=== PATIENT | female | born 1965 | race African-American/Black ===

== ENCOUNTER 2018-01-30 15:34 | Inpatient (IN) | payer SELFPAY ==
[~2018-01-30] VITALS: Ht 154.9 cm; Wt 106.5 kg
--- NOTE | ~2018-01-30 | EKG ---
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 : 1965 Requested By: Mary Segura Order Number: [id number] MD: Chris Oro Measurements Intervals [place] Rate: 74 P: 60 [place]: 165 QRS: 5 QRSD: 101 T: 98 QT: 394 QTc: 438 Interpretive Statements Sinus rhythm Abnormal R-wave progression, early transition LVH with secondary repolarization abnormality Inferior infarct, acute (RCA) Lateral leads are also involved Probable RV involvement, suggest recording right precordial leads Compared to ECG 12/30/2009 14:48:16 No significant changes Electronically Signed On 01-31-2018 13:21:54 JOURNALISM INTERN by Chris Oro [email or web address] <ELECTRONICALLY SIGNED> By: Chris Oro MD 01/31/18 1321 1538 1538 Chris Oro MD /EPI
--- NOTE | ~2018-01-30 | EKG ---
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 : 1965 Requested By: Martín Garcia Order Number: [id number] MD: Chris Oro Measurements Intervals [place] Rate: 76 P: 20 [place]: 187 QRS: -9 QRSD: 96 T: -9 QT: 429 QTc: 483 Interpretive Statements Sinus rhythm Abnormal R-wave progression, early transition Probable left ventricular hypertrophy Inferior infarct, old Baseline wander in lead(s) V3 Compared to ECG 12/30/2009 14:48:16 Early repolarization no longer present Myocardial infarct finding still present Electronically Signed On 01-31-2018 13:23:18 GROUNDWATER PROGRAMS DIRECTOR by Chris Oro [email or web address] <ELECTRONICALLY SIGNED> By: Chris Oro MD 01/31/18 1323 11 11 Chris Oro MD /EPI
--- NOTE | ~2018-01-30 | EKG ---
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 : 1965 Requested By: Chris Oro Order Number: [id number] MD: Chris Oro Measurements Intervals [place] Rate: 85 P: 27 [place]: 161 QRS: -29 QRSD: 89 T: -36 QT: 377 QTc: 449 Interpretive Statements Sinus rhythm Abnormal R-wave progression, early transition Left ventricular hypertrophy Inferior infarct, old Compared to ECG 01/31/2018 07:37:33 No significant changes Electronically Signed On 02-01-2018 10:30:49 INSTRUMENT ASSEMBLER by Chris Oro [email or web address] <ELECTRONICALLY SIGNED> By: Chris Oro MD 02/01/18 1030 1018 1018 Chris Oro MD /EPI
--- NOTE | ~2018-01-30 | CATHLAB ---
[facility] [address] [place] [address] INVASIVE PROCEDURE REPORT Name: LINO BHANDARI Room #: 216-P ADM IN M.R.#: [id number] Admission: 01/30/18 Attend Phys: Rodrigo Boyd, Discharge: Date of : 65 Date of Service: 01/30/18 1836 Report #: [id number] THIS REPORT FOR: //name// APPROVED REPORT Patient Details Patient Status: In-Patient Room #: The patient is a 52 year-old female Event Personnel Jennifer Barton, Ne Barry, Sharan, Patria TSANG RN, Tre Murphy RN RN, Martín Garcia Talent Acquisition Consultant Procedures Performed Art Access - R femoral artery* 27791 Initial Mod Sed Same Phys/QHP Gr5y 500307 56607 Mod Sed Same Phys/QHP Ea 819582 Left Heart Cath w/or w/o Coronaries [id number] [facility] DIOGO Revasc AMI Total/Sub Single CIRC C9606 AMIREVSING Hemostasis w/ Mynx Indication STEMI (>0 to less than or equal to 6 hours) Risk Factors Dysplipidemia Obesity, Family History, Hypertension, Diabetes Admission/Lab Medications/Medications given during procedure Aspirin, Glycoprotein IllbIlla Inhibitors, Lipid Lowering Agents, ACEI/ARB, Platelet Aff. Inhib., Beta BlockerHeparin Unfract. Procedure Narrative The patient was brought emergently to the Cardiac Catheterization Laboratory and was prepped and draped in a sterile manner. The Right Groin^ was infiltrated with 1% Lidocaine subcutaneous anesthesia. A PINNACLE 6FR Sheath #[id number] sheath was inserted into the RFA^. Coronary angiography was performed using coronary diagnostic catheters. The right coronary system was accessed and visualized with a JR 4 catheter. The left coronary system was accessed and visualized with a VISTA 6FR XB 3.5 #[id number] catheter. The left ventricle was accessed and visualized with a Pigtail catheter. Left ventricular/Aortic Valve gradient assessed via catheter pullback. Left ventriculogram was performed in CAMPBELL projection. Closure device was deployed with a 6 Fr Mynx. The patient tolerated the procedure well and there were no complications associated with the procedure. [facility] [address] [place] [address] INVASIVE PROCEDURE REPORT Name: LINO BHANDARI Room #: 216-P [facility] IN .R.#: [id number] Admission: 01/30/18 Attend Phys: Rodrigo Boyd, Discharge: Date of : 65 Date of Service: 01/30/18 1836 Report #: [id number] There was no hematoma. Intraoperative Conscious Sedation Sedation start time: 16:37 Case end Time: 17:41 Fentanyl 25 mcg Versed 2 mg Fluoro Time: 8.59 minutes Dose: DAP 92519.10 cGycm2 1842 mGy Contrast Type and Amount: Omnipaque 200 ml Coronary Angiography The patient's coronary anatomy is co- dominant. Diagnostic Cath Left Main Normal LAD Normal Diagonal 1 Large proximal diagonal branch, angiographically normal Circumflex Co-dominant with mid vessel occlusion OM1 Small OM1, prior to occlusion of mid-Cx. Angiographically normal Right Coronary Normal R PDA Normal Left Ventriculography The left ventricle is normal in size with normal contractility. The left ventricular ejection fraction is estimated to be 55-60%. Left ventricular wall motion abnormalities are present. There is no mitral insufficiency. Normal global systolic function withn mild inferior wall hypokinesis Hemodynamics The aortic pressure is 118/74 mmHg with a mean of 92 mmHg. The left ventricular pressure is 163/6 mmHg with a mean of mmHg. The left ventricular end diastolic pressure is 39 mmHg. PCI Technique Lesion Anticoagulation was achieved with Heparin, Integrilin. Patient was preloaded with Brillinta. Percutaneous coronary intervention was performed on the mid circumflex artery segment. The lesion stenosis prior to intervention was 100% with PAGE 0 flow. A VISTA 6FR XB 3.5 #[id number] Guide Catheter was used to engage the ostium. A Luge Wire .014 x 182CM #[id number] Interventional Guidewire was used to cross the lesion. [facility] [address] [place] [address] INVASIVE PROCEDURE REPORT Name: LINO BHANDARI Room #: 216-P [facility] IN M.R.#: [id number] Admission: 01/30/18 Attend Phys: Rodrigo Boyd, Discharge: Date of : 65 Date of Service: 01/30/18 1836 Report #: [id number] BALLOON DILATION A Balloon catheter Euphora NC RX 2.5 x 12 #[id number] was inserted and inflated up to 10atm for 30seconds. Repeat angiography revealed the following post-dilatation results: Moderate residual stenosis. PAGE III flow restored. Additional Inflation: 10atm for 30seconds. STENT DEPLOYMENT A drug-eluting stent RESOLUTE RX 3.0 X 18 #[id number] was inserted and inflated up to 14.00atm for 30seconds. Repeat angiography revealed the following post-stent deployment results: 0% residual stenosis. POST STENT DEPLOYMENT BALLOON DILATION A Balloon catheter Euphora NC RX 3.0 x 15 #[id number] was inserted and inflated up to 25.00atm for 30seconds. Repeat angiography revealed the following post-dilatation results: 0% residual stenosis with PAGE III flow. Final angiography reveals 0 % stenosis with PAGE 3 flow. Conclusion 1. Normal global systolic function with mild inferior wall hypokinesis EF 55% 2. Normal left main 3. Normal LAD, RCA 4. Occluded co-dominant mid-Cx successfully stented with 3.0 x 18 Resolute medicated stent, post dilated to 3.3mm Recommendations Cardiac Rehabilitation Referral Aggressive Medical Therapy Weight Loss Reduction Program Medications Administered HARIKA Inhibitor (any) Aspirin (any) Beta Irvin (any) Statin (any) Ticagrelor Cardiac Rehabilitation Referral <ELECTRONICALLY SIGNED> By: Martín Garcia MD, [facility] 01/30/181835 35 35 Martín Garcia MD, FAC /INF
--- NOTE | ~2018-01-30 | HC ---
[facility] [place] [address] CONSULTATION Name: LINO BHANDARI Room #: 216-P [facility] IN M.R.#: [id number] Admission: 01/30/18 Attend Phys: Rodrigo Boyd DO Discharge: 02/02/18 Date of : 65 Report #: [id number] THIS REPORT FOR: //name// CC: BENJAMIN physician/PCP Rodrigo Boyd DATE OF SERVICE: 01/30/2018 REASON FOR CONSULTATION: Chest pain. HISTORY OF PRESENT ILLNESS: The patient is a 52-year-old woman with hypertension, dyslipidemia, and diabetes. Around 2:30 today, she experienced a midsternal chest tightness that she thought was indigestion. This was not associated with other symptoms. She presented to the Emergency Department with ongoing pain where an EKG demonstrated inferolateral injury pattern. I was asked to see her in this regard. She denies a past cardiac history. No heart failure symptoms including orthopnea, paroxysmal nocturnal dyspnea or lower extremity edema. She denies palpitations, near syncope, or syncope. ALLERGIES: There are no known drug allergies. MEDICATIONS: Include amlodipine 10 mg daily, triamterene/hydrochlorothiazide 1 a day, pravastatin, and Prevacid. PAST MEDICAL HISTORY: Medical records have been reviewed and include a history of prediabetes, hypertension, and dyslipidemia. SOCIAL HISTORY: She is single, has one child. Nonsmoker, nondrinker. FAMILY HISTORY: Notable for father who had premature coronary disease. REVIEW OF SYSTEMS: All systems negative except as that noted above. PHYSICAL EXAMINATION: GENERAL: Reveals a pleasant woman, in ongoing moderate distress. VITAL SIGNS: Blood pressure is 140/70, heart rate of 78 and regular. She is afebrile. HEENT: There are neither xanthelasma, subcutaneous xanthomata, oral mucosal or digital cyanosis or kyphoscoliosis present. CHEST: Clear to auscultation and percussion. CARDIOVASCULAR: Regular rate and rhythm with normal S1 and S2. No murmurs or rubs. ABDOMEN: Soft, obese and nontender. EXTREMITIES: Without cyanosis, clubbing or edema. Radial pulses are 2+. NEUROLOGIC: She is alert with a nonfocal exam. [facility] [address] [place] [address] CONSULTATION Name: LINO BHANDARI Room #: 216-P [facility] IN .R.#: [id number] Admission: 01/30/18 Attend Phys: Rodrigo Boyd DO Discharge: 02/02/18 Date of : 65 Report #: [id number] LABORATORY DATA: Sodium is 137, potassium 2.7, creatinine 1.1, glucose 160. White count is 16.4, hemoglobin 12, hematocrit 38, platelet count 342. EKG, sinus rhythm with inferolateral injury. IMPRESSION: 1. Acute inferolateral myocardial infarction. 2. Hypertension. 3. Diabetes. 4. Dyslipidemia. 5. Family history of premature coronary artery disease. RECOMMENDATIONS: 1. Urgent coronary angiography. 2. Anticoagulant and antiplatelet therapy. 3. Continued efforts towards aggressive risk factor modification. I have discussed the angiographic procedure in detail including its associated risks. After a thorough discussion of the procedure, its risks and alternatives, and after answering her questions, she is agreeable to proceeding. <ELECTRONICALLY SIGNED> By: Martín Garcia MD, [facility] 02/03/18 0738 1618 1937 Martín Garcia MD, FACC /nt
--- NOTE | ~2018-01-30 | EKG ---
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 : 1965 Requested By: Martín Garcia Order Number: [id number] MD: Chris Oro Measurements Intervals [place] Rate: 89 P: 27 DC: 159 QRS: -19 QRSD: 89 T: 57 QT: 388 QTc: 473 Interpretive Statements Sinus rhythm Abnormal R-wave progression, early transition Left ventricular hypertrophy Inferior infarct, old Compared to ECG 12/30/2009 14:48:16 Early repolarization no longer present Myocardial infarct finding still present Electronically Signed On 01-31-2018 13:29:21 REAL ESTATE LEGAL ASSISTANT by Chris Oro [email or web address] <ELECTRONICALLY SIGNED> By: Chris Oro MD 01/31/18 1329 0737 0737 Chris Oro MD /EPI
--- NOTE | ~2018-01-30 | 2DMMODE ---
[facility] [address] [place] [address] 2 D/M-MODE ECHOCARDIOGRAM Name: LINO BHANDARI Room #: 216-P ADM IN M.R.#: [id number] Admission: 01/30/18 Attend Phys: Rodrigo Boyd, Discharge: Date of : 65 Date of Service: 02/02/18 1105 Report #: [id number] THIS REPORT FOR: //name// APPROVED REPORT Study performed: 02/02/2018 08:52:46 EXAM: Comprehensive 2D, Doppler, and color-flow Echocardiogram Patient Location: Bedside Room #: 216 Status: routine BSA: 2.02 HR: 76 bpm BP: 147/74 mmHg Other Information Study Quality: Adequate Technically limited study due to body habitus. Indications Chest Pain Hypertension/HDD CT 2D Dimensions LVEF(%): 51.00 (>50%) IVSd: 15.86 (7-11mm) LVOT Diam: 18.63 (18-24mm) LVDd: 32.62 mm PWd: 15.87 (7-11mm) Ascending Ao: 26.19 (22-36mm) LVDs: 24.41 (25-40mm) Aortic Root: 29.54 mm IVC: 15.00 mm Bishop's LVEF: 51.00 % Volumes Left Atrial Volume (Systole) Single Plane 4CH: 33.58 mL Single Plane 2CH: 18.71 mL LA ESV Index: 14.00 mL/m2 Aortic Valve AoV Peak Catracho.: 1.37 m/s AO Peak Gr.: 10.11 mmHg LVOT Max P.53 mmHg LVOT Max V: 1.06 m/s KRISTINA Vmax: 2.11 cm2 Mitral Valve [facility] [address] [place] [address] 2 D/M-MODE ECHOCARDIOGRAM Name: LINO BHANDARI HILLARY Room #: 216-P [facility] IN M.R.#: [id number] Admission: 01/30/18 Attend Phys: Rodrigo Boyd, Discharge: Date of : 65 Date of Service: 02/02/18 1105 Report #: [id number] E/A Ratio: 0.8 MV Decel. Time: 203.18 ms MV E Max Catracho.: 0.86 m/s MV A Catracho.: 1.02 m/s MV PHT: 58.92 ms IVRT: 89.97 ms Pulmonary Valve PV Peak Catracho.: 0.98 m/s PV Peak Gr.: 3.84 mmHg Pulmonary Vein P Vein S: 0.50 m/s P Vein A: 0.28 m/s P Vein D: 0.31 m/s P Vein A Dur.: 73.8 msec P Vein S/D Ratio: 1.61 Tricuspid Valve RAP Estimate: 5.00 mmHg Left Ventricle The left ventricle is normal size. Moderate concentric left ventricular hypertrophy. The left ventricular systolic function is normal. The left ventricular ejection fraction is within the normal range. LVEF is 55-60%. Mild diastolic dysfunction is present (impaired relaxation pattern). Right Ventricle Right ventricle is not well visualized. The right ventricular systolic function is normal. Atria The left atrium size is normal. The right atrium size is normal. Aortic Valve Aortic valve is mildly calcified, trileaflet. Trace aortic regurgitation. There is no aortic valvular stenosis. Mitral Valve The mitral valve is normal in structure. There is no mitral valve regurgitation noted. No evidence of mitral valve stenosis. Tricuspid Valve The tricuspid valve is normal in structure. There is no tricuspid valve regurgitation noted. Unable to assess PA pressure. Pulmonic Valve [address] [address] 2 D/M-MODE ECHOCARDIOGRAM Name: LINO BHANDARI Room #: 216-P [facility] IN M.R.#: [id number] Admission: 01/30/18 Attend Phys: Rodrigo Boyd, Discharge: Date of : 65 Date of Service: 02/02/18 1105 Report #: [id number] The pulmonary valve is normal in structure. There is no pulmonic valvular regurgitation. Great Vessels The aortic root is normal in size. IVC is normal in size and collapses >50% with inspiration. Pericardium There is no pericardial effusion. <Conclusion> The left ventricular systolic function is normal. Minimal inferobasal hypokinesis Moderate concentric left ventricular hypertrophy. Mild diastolic dysfunction is present (impaired relaxation pattern). Aortic valve is mildly calcified, trileaflet. Trace aortic regurgitation, no stenosis. The mitral valve is normal in structure. No mitral valve regurgitation noted. There is no pericardial effusion. <ELECTRONICALLY SIGNED> By: Martín Garcia MD, FACC 02/02/18 1105 1105 1105 Martín Garcia MD, FACC /INF
[~2018-01-30 15:34] MED LIST: LISINOPRIL-HCT1 EAC2 PO; NOHOMEMEDICATIONS
[2018-01-30 15:36] VITALS: BP 121/69
[2018-01-30 15:38] VITALS: BP 177/92
[2018-01-30 15:58] LABS: ABSOLUTE NEUTROPHILS 10.5 thou/uL (1.4-8.2); BASOPHILS 0.9 % (0.0-2.0); EOSINOPHILS 2.1 % (0.0-3.0); HEMATOCRIT 38.6 % (37.0-47.0); HEMOGLOBIN 12.8 gm/dL (12.0-15.0); LYMPHOCYTES 28.1 % (24.0-44.0); MCH 27.7 pg (26.0-34.0); MCHC 33.2 g/dL (28.0-37.0); MCV 83.4 fL (80.0-100.0); MONOCYTES 4.9 % (1.0-8.0); PLATELET COUNT 372 thou/uL (150-400); RBC 4.63 mil/uL (4.20-5.00); RDW 15.8 % (10.5-14.5); WBC 16.4 thou/uL (4.0-11.0)
[2018-01-30 16:08] LABS: ANION GAP 11 mmol/L (7-16); BUN 17 mg/dL (7-18); CALCIUM 9.4 mg/dL (8.5-10.1); CHLORIDE 100 mmol/L (98-107); CO2 26 mmol/L (21-32); CREATININE 1.1 mg/dL (0.6-1.0); GLUCOSE 160 mg/dL (74-106); SODIUM 137 mmol/L (136-145)
[2018-01-30 16:11] LABS: POTASSIUM 2.7 mmol/L (3.5-5.1)
[2018-01-30 16:17] LABS: APTT 23.7 Seconds (24.5-32.8)
[2018-01-30 16:18] LABS: TROPONIN-I < 0.04 ng/mL (<0.06)
[2018-01-30 18:20] VITALS: BP 140/83
[2018-01-30 19:18] VITALS: BP 145/90
[2018-01-31] VITALS (7 sets, daily range): BP systolic 148–167; BP diastolic 81–99
[2018-01-31 01:25] LABS: ABSOLUTE NEUTROPHILS 10.1 thou/uL (1.4-8.2); BASOPHILS 0.4 % (0.0-2.0); EOSINOPHILS 0.2 % (0.0-3.0); HEMATOCRIT 35.8 % (37.0-47.0); HEMOGLOBIN 11.9 gm/dL (12.0-15.0); LYMPHOCYTES 14.8 % (24.0-44.0); MCH 27.4 pg (26.0-34.0); MCHC 33.3 g/dL (28.0-37.0); MCV 82.3 fL (80.0-100.0); MONOCYTES 4.6 % (1.0-8.0); PLATELET COUNT 360 thou/uL (150-400); RBC 4.34 mil/uL (4.20-5.00); RDW 15.9 % (10.5-14.5); WBC 12.7 thou/uL (4.0-11.0)
[2018-01-31 01:39] LABS: ANION GAP 10 mmol/L (7-16); BUN 13 mg/dL (7-18); CALCIUM 8.7 mg/dL (8.5-10.1); CHLORIDE 103 mmol/L (98-107); CHOLESTEROL 288 mg/dL (<200); CO2 25 mmol/L (21-32); GLUCOSE 114 mg/dL (74-106); HDL CHOLESTEROL 59 mg/dL (>40); LDL CHOLESTEROL 194 mg/dL (<100); POTASSIUM 3.2 mmol/L (3.5-5.1); SODIUM 138 mmol/L (136-145); TC:HDL 4.9 Ratio (Not establshd); TRIGLYCERIDE 176 mg/dL (<150); VLDL 35 mg/dL (<40)
[2018-01-31 01:45] LABS: SERUM ASSESSMENT Clear
[2018-01-31 01:47] LABS: TROPONIN-I 30.01 ng/mL (<0.06)
[2018-01-31 02:13] LABS: GLYCOHEMOGLOBIN (HGB A1C) 6.1 % (4.8-5.6)
[2018-01-31] MEDS ORDERED: AMLODIPINE BESY10 MG PO (03:50)
[2018-01-31] MEDS ORDERED: PRAVACHOL20 MG PO (03:51)
[2018-01-31] MEDS ORDERED: ALIVE WOMEN'S1 EAC1 PO (03:52)
[2018-02-01 05:01] VITALS: BP 142/85
[2018-02-01 08:00] VITALS: BP 125/91
[2018-02-01 11:27] LABS: CALCIUM 9.3 mg/dL (8.5-10.1); POTASSIUM 3.7 mmol/L (3.5-5.1)
[2018-02-01 12:20] VITALS: BP 145/88
[2018-02-01 16:30] VITALS: BP 156/104
[2018-02-01 21:06] VITALS: BP 152/85
[2018-02-02 03:54] LABS: ABSOLUTE NEUTROPHILS 6.9 thou/uL (1.4-8.2); BASOPHILS 0.7 % (0.0-2.0); EOSINOPHILS 2.7 % (0.0-3.0); HEMATOCRIT 35.4 % (37.0-47.0); HEMOGLOBIN 11.8 gm/dL (12.0-15.0); LYMPHOCYTES 26.2 % (24.0-44.0); MCH 27.5 pg (26.0-34.0); MCHC 33.3 g/dL (28.0-37.0); MCV 82.7 fL (80.0-100.0); MONOCYTES 7.5 % (1.0-8.0); PLATELET COUNT 348 thou/uL (150-400); POLYS 62.9 % (36.0-66.0); RBC 4.28 mil/uL (4.20-5.00); RDW 15.3 % (10.5-14.5); WBC 10.9 thou/uL (4.0-11.0)
[2018-02-02 04:01] LABS: CALCIUM 8.9 mg/dL (8.5-10.1); POTASSIUM 3.4 mmol/L (3.5-5.1)
[2018-02-02 04:26] VITALS: BP 147/74
[2018-02-02 07:55] VITALS: BP 140/85
[2018-02-02] MEDS ORDERED: LOPRESSOR50 PO (09:27)
[2018-02-02] MEDS ORDERED: LISINOPRIL20 MG PO (09:28)
[2018-02-02] MEDS ORDERED: ATORVASTATIN CA40 MG PO (09:29)
[2018-02-02 11:27] VITALS: BP 140/85
[2018-02-02 11:35] VITALS: BP 138/88
[2018-02-06] MEDS ORDERED: BRILINTA90 MG PO (09:55)
[2018-02-06] MEDS ORDERED: ADULT ASPIRIN R81 MG PO (09:57)
== END 2018-02-02 14:05 | disposition home or self-care (01) | DRG 247 ==
LOC: ER 15:34 → EROBS 15:55 → 2N 17:02
PROVIDERS: Emergency Medicine; Family Medicine; Internal Medicine; Internal Medicine Cardiovascular Disease
PROC: 027034Z Dilation of Coronary Artery, One Artery with Drug-eluting Intraluminal Device, Percutaneous Approach (ICD-10-PCS; principal; 2018-01-30)
PROC: B2111ZZ Fluoroscopy of Multiple Coronary Arteries using Low Osmolar Contrast (ICD-10-PCS; principal; 2018-01-30)
PROC: B2151ZZ Fluoroscopy of Left Heart using Low Osmolar Contrast (ICD-10-PCS; principal; 2018-01-30)
PROC: 4A023N7 Measurement of Cardiac Sampling and Pressure, Left Heart, Percutaneous Approach (ICD-10-PCS; principal; 2018-01-30)
DX: I21.19 ST elevation (STEMI) myocardial infarction involving other coronary artery of inferior wall (principal); I47.2 Ventricular tachycardia; I10 Essential (primary) hypertension; E78.5 Hyperlipidemia, unspecified; E66.01 Morbid (severe) obesity due to excess calories; E11.9 Type 2 diabetes mellitus without complications; Z68.41 Body mass index [BMI] 40.0-44.9, adult; Z79.899 Other long term (current) drug therapy; Z82.49 Family history of ischemic heart disease and other diseases of the circulatory system
CPT/HCPCS: 10081